=== PATIENT | male | born 1990 | race Caucasian/White ===

== ENCOUNTER 2018-05-17 12:55 | Emergency (ER) | payer OTHER, SELFPAY ==
[2018-05-17 13:12] VITALS: BP 126/79; PULSE 82; RESP 16; TEMP 36.8; O2SAT 98
[2018-05-17 14:06] LABS: Influenza A and B by PCR Rapid Negative (Negative)
--- NOTE | 2018-05-17 15:35 | ED_ITS ---
HPI - URI/Sore Throat General Chief Complaint: Upper Respiratory Symptoms Stated Complaint: Flu like symptoms Time Seen by Provider: 05/17/18 15:16 Source: patient Mode of arrival: ambulatory History of Present Illness HPI Narrative: 28-year-old male nonsmoker otherwise healthy presents with son and and chief complaint of multiple upper respiratory symptoms including runny nose, sore throat and dry hacking cough. Both son and have swabbed diagnosed flu. Patient has no fever or chills and denies nausea, vomiting or diarrhea MD Complaint: fever, cough and sore throat Onset (ago): minute(s) Duration: constant Severity: mild Relieving factors: nothing Able to tolerate fluids by mouth: Yes Context: sick contacts Treatments prior to arrival: none Related Data Home Medications Medication Instructions Recorded Confirmed No Known Home Medications 05/17/18 05/17/18 Allergies Allergy/AdvReac Type Severity Reaction Status Date / Time No Known Drug Allergies Allergy Verified 05/17/18 13:14 Review of Systems Constitutional Denies chills, Denies fever(s), Denies lethargy and Denies weakness Eyes Denies change in vision, Denies eye discharge, Denies irritation and Denies loss of vision ENT Ears, Nose, Mouth, and Throat: Denies change in voice, Reports nasal congestion, Reports nasal discharge, Denies neck pain and Reports sore throat Cardiovascular Denies chest pain, Denies irregular heart rhythm, Denies lightheadedness, Denies palpitations, Denies dyspnea, Denies dyspnea on exertion and Denies orthopnea Respiratory Reports cough, Denies dyspnea, Denies dyspnea on exertion and Denies wheezing Gastrointestinal Gastrointestinal: Denies abdominal pain, Denies change in bowel habits, Denies diarrhea, Denies nausea and Denies vomiting Genitourinary Denies hematuria, Denies flank pain, Denies urinary incontinence and Denies urinary urgency Musculoskeletal Denies neck pain Integumentary/Breasts Denies pruritus, Denies erythema, Denies rash and Denies wounds Neurologic Denies confusion, Denies loss of vision and Denies weakness Psychiatric Denies anxiety, Denies confusion, Denies depression, Denies homicidal ideation and Denies suicidal ideation Endocrine Denies palpitations Hematologic/Lymphatic Denies easy bruising Allergic/Immunologic Denies wheezing Exam Narrative Exam Narrative: GENERAL: This is a well-nourished, well-developed patient, in mild distress. HEAD: Atraumatic. Normocephalic. No temporal or scalp tenderness. EYES: Pupils equal round and reactive. Extraocular motions intact. No scleral icterus. No injection or drainage. ENT: Clear the nasal drainage bilateral. Nose without bleeding, purulent draina ge or septal hematoma. Throat without erythema, tonsillar hypertrophy or exudate. Uvula midline. Airway patent. NECK: Trachea midline. No JVD or lymphadenopathy. Supple, nontender, no meningeal signs. CARDIOVASCULAR: Regular rate and rhythm without murmurs, gallops, or rubs. RESPIRATORY: Clear to auscultation. Breath sounds equal bilaterally. No wheezes, rales, or rhonchi. GASTROINTESTINAL: Abdomen soft, non-tender, nondistended. No hepato- splenomegaly, or palpable masses. No guarding. EXTREMITIES: No clubbing, cyanosis, or edema. No joint tenderness, effusion, or edema noted. BACK: Nontender without deformity or crepitance. No flank tenderness. NEURO: AOx3. SKIN: No rash or erythema. Initial Vital Signs Initial Vital Signs: Vital Signs Temperature 98.2 F 05/17/18 13:12 Pulse Rate 82 05/17/18 13:12 Respiratory Rate 16 05/17/18 13:12 Blood Pressure 126/79 05/17/18 13:12 Pulse Oximetry 98 05/17/18 13:12 Course Orders Ordered: ED Orders 05/17/18 13:16 Influenza A and B by PCR Rapid Stat Vital Signs - 8 hr 05/17/18 13:12 Temperature 98.2 F Pulse Rate 82 Respiratory Rate 16 Blood Pressure 126/79 Pulse Oximetry 98 MDM - URI/Sore Throat Lab Data Lab Results 05/17/18 Range/Units 13:16 Influenza A & B (PCR) Negative (Negative) Discharge Plan Departure Patient Disposition: Home Clinical Impression: Upper respiratory infection Qualifiers: URI type: unspecified viral URI Qualified Code(s): J06.9 - Acute upper respiratory infection, unspecified Instructions: DI for Viral Upper Respiratory Infection -- Adult Activity Restrictions/Additional Instructions: *You have been diagnosed with [ upper respiratory infection ] *What to do: *Take medications as directed *Follow up with your primary care provider in 2-3 days, call for an appointment. Let them know you were seen in the Emergency Department and that we ask that you be seen in follow up *Return to ER if you should have any new, worsening or concerning symptoms Prescriptions: No Action No Known Home Medications RF: 0
[2018-05-17 16:21] VITALS: BP 111/73; PULSE 70; RESP 20; O2SAT 97
== END 2018-05-17 16:22 | disposition home or self-care (01) ==
PROVIDERS: Nurse Practitioner Family; Emergency Provider Emergency Medicine
DX: J06.9 Acute upper respiratory infection, unspecified (principal)
CPT/HCPCS: 87400; 99282

== ENCOUNTER 2022-05-10 19:48 | Emergency (ER) | payer OTHER, SELFPAY ==
[2022-05-10 20:03] VITALS: BP 128/75; PULSE 81; RESP 16; TEMP 36.6; O2SAT 100; BMI 25.1
[2022-05-11] MEDS: KETOROLAC 30 MG/ML VIAL IM (00:08)
--- NOTE | 2022-05-11 00:37 | ED.BACK ---
HPI - Back Pain/Injury General Chief Complaint: Back Pain/Injury Stated Complaint: back pain Time Seen by Provider: 05/11/22 00:36 History of Present Illness HPI Narrative: Patient is a healthy 32-year-old male who presents with back pain. 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 No change in bowel or bladder. No fever or chills. Kind going to his groin but no numbness tingling or weakness Related Data Previous Rx's Medication Instructions Recorded cyclobenzaprine 5 mg tablet 5 mg PO TID PRN muscle spasm #10 05/11/22 tabs hydrocodone 5 mg-acetaminophen 325 1 tab PO Q6H PRN pain #10 tabs 05/11/22 mg tablet Allergies Allergy/AdvReac Type Severity Reaction Status Date / Time No Known Drug Allergies Allergy Verified 05/10/22 20:06 Review of Systems Review of Systems ROS Unobtainable: All systems reviewed & are unremarkable except as noted in HPI and below Patient History tobacco type: cigarettes and cigars alcohol intake frequency: 0-2 drinks per day Substance Use Type: does not use Exam Initial Vital Signs Initial Vital Signs: Vital Signs Temperature 97.9 F 05/10/22 20:03 Pulse Rate 81 05/10/22 20:03 Respiratory Rate 16 05/10/22 20:03 Blood Pressure 128/75 05/10/22 20:03 Pulse Oximetry 100 05/10/22 20:03 Oxygen Delivery Method Room Air 05/10/22 20:03 GENERAL: Well-appearing, well-nourished and in no acute distress. CARDIOVASCULAR: peripheral pulses in tact, cap refill <2 sec RESPIRATORY: No respiratory distress, speaks in full sentences without difficulty BACK: No vertebral tenderness bilateral paraspinal tenderness in lower lumbar area, can move legs but hurts back EXTREMITIES: Normal range of motion, no clubbing or edema. Neurovascularly intact NEUROLOGICAL: Cranial nerves II through XII grossly intact. Normal gait and speech. SKIN: Warm, dry, no petechiae, no rashes or lesions. Course Orders Ordered: Discontinued Medications Hydrocodone Bitart/Acetaminophen (Hydrocodone/Acet 5/325 Prepack) 1 bottle MISC SEEINSTR ONE Stop: 05/11/22 00:49 Last Admin: 05/11/22 00:58 Dose: 1 bottle Documented By: LIBRADO Cyclobenzaprine HCl (Cyclobenzaprine 10 Mg Prepack) 1 bottle MISC SEEINSTR ONE Stop: 05/11/22 00:49 Last Admin: 05/11/22 00:58 Dose: 1 bottle Documented By: LIBRADO Ketorolac Tromethamine (Ketorolac 30 Mg/Ml Vial) 30 mg IM NOW ONE Stop: 05/11/22 00:06 Last Admin: 05/11/22 00:08 Dose: 30 mg Documented By: DEE Vital Signs Vital signs: Vital Signs - 8 hr 05/11/22 00:52 Pulse Rate 80 Respiratory Rate 16 Blood Pressure 123/69 Pulse Oximetry 100 MDM - Back Pain/Injury MDM Narrative Medical decision making narrative: Healthy 32-year-old male who back pain after heavy lifting. No evidence of cauda equina likely musculoskeletal muscle spasm. I is given Toradol cyclobenzaprine. He reports he is still having pain he is given hydrocodone. No red flag warning signs, pain is reproducible to palpation most likely musculoskeletal. Although kidney stone also considered highly unlikely to be a dissection as well. Discharge Plan Departure Patient Disposition: Home Clinical Impression: Strain of lumbar region Instructions: DI for Back Pain With Sciatica Activity Restrictions/Additional Instructions: *You have been diagnosed with back pain with sciatica *What to do: At this time light activity is encouraged no strenuous activity no heavy lifting. Recommend heating pad and stretching *Continue to take medications as directed Motrin 600 mg every 6 hours if needed for gwdk-in-eeshddpa pain Cyclobenzaprine 5 mg every 8 hours if needed for muscle spasm [place] 1 tablet every 6 hours if needed for severe *Follow up with your primary care provider in 2-3 days or call [phone] *Return to ER if you should have increasing leg weakness loss of urine or stool worsening pain [or] any new, worsening or concerning symptoms CONTROLLED SUBSTANCE DISCHARGE (Narcotoic/benzodiazepine/Flexeril/Phenergan) 1. You have been prescribed narcotic medications, it does have acetaminophen/Tylenol/paracetamol in it, DO NOT TAKE MORE THAN 4,00mg in 24 hours of Tylenol. TRAMADOL DOES NOT CONTAIN TYLENOL 2. Please understand that we cannot provide further refills of narcotics, benzodiazepines or controlled substances through the ED and her pain management will need to be through your provider. 3. While on these medications you cannot drive or operate heavy machinery. 4. You cannot sign legal documents or perform any duties such as this. 5. As long as you're taking opiate pain medications he should also be taking a stool softener such as Colace, Dulcolax, MiraLAX or prune juice, to help avoid constipation. Prescriptions: New hydrocodone-acetaminophen 5-325 mg tablet 1 tab PO Q6H PRN (Reason: pain) Qty: 10 0RF cyclobenzaprine 5 mg tablet 5 mg PO TID PRN (Reason: muscle spasm) Qty: 10 0RF Stand Alone Forms: Patient Portal/API, Work Release Note
[2022-05-11 00:52] VITALS: BP 123/69; PULSE 80; RESP 16; O2SAT 100
[2022-05-11] MEDS: HYDROCODONE/ACET 5/325 PREPACK 1 BOTTLE MISC (00:58)
[2022-05-11] MEDS: CYCLOBENZAPRINE 10 MG PREPACK 1 BOTTLE MISC (00:58)
== END 2022-05-11 01:16 | disposition home or self-care (01) ==
PROVIDERS: Emergency Provider Emergency Medicine
DX: S39.012A Strain of muscle, fascia and tendon of lower back, initial encounter (principal)
CPT/HCPCS: 96372; 99283; J1885